=== PATIENT | male | born 1960 | race Caucasian/White ===

== ENCOUNTER → 2018-06-07 | Outpatient (CLI) | payer OTHER ==
[~2018-06-07] MED LIST: LISI5 PO; METO50 PO; NAPR220 PO
== END | disposition home or self-care (01) ==
LOC: LAB SHORT 11:15 → LAB EV 11:15
DX: S29.9XXA Unspecified injury of thorax, initial encounter (principal)
CPT/HCPCS: 87070; 87075; 87077; 87186; 87205

== ENCOUNTER 2020-06-13 06:35 | Emergency (ER) | payer OTHER ==
[~2020-06-13] VITALS: Ht 175.3 cm; Wt 85.3 kg
[2020-06-13] MEDS ORDERED: LOSARTAN POTAS100 M1 PO (07:02)
[2020-06-13] MEDS ORDERED: ELIQUIS5 M3 PO (07:03)
[2020-06-13] MEDS ORDERED: METO50ER PO (07:03)
[2020-06-13] MEDS ORDERED: OMEP20ER PO (07:04)
[2020-06-13 08:21] LABS: BASOPHILS ABSOLUTE AUTO 0.04 K/mm3 (0.00-0.23); BASOPHILS PERCENT AUTO 1 % (0-2); EOSINOPHILS PERCENT AUTO 3 % (0-6); Hematocrit 52.2 % (37.0-53.0); Hemoglobin 17.6 g/dL (13.5-17.5); IMMATURE GRAN ABSOLUTE AUTO 0.05 K/mm3 (0.00-0.10); IMMATURE GRAN PERCENT AUTO 1 % (0-1); LYMPHOCYTES ABSOLUTE AUTO 1.19 K/mm3 (0.84-5.20); LYMPHOCYTES PERCENT AUTO 19 % (21-46); MONOCYTES ABSOLUTE AUTO 0.65 K/mm3 (0.16-1.47); MONOCYTES PERCENT AUTO 10 % (4-13); Mean Corpuscular HGB Conc 33.7 g/dL (31.5-36.5); Mean Corpuscular Volume 92 fL (80-100); Mean Platelet Volume 10.5 fL (9.1-12.4); NEUTROPHILS ABSOLUTE AUTO 4.28 K/mm3 (1.96-9.15); NEUTROPHILS PERCENT AUTO 67 % (41-73); Platelet Count 190 K/mm3 (150-400); RDW Coefficient Variation 12.9 % (11.7-14.2); RDW Standard Deviation 43.8 fL (35.1-46.3); Red Blood Cell Count 5.68 M/mm3 (4.30-5.90); White Blood Cell Count 6.41 K/mm3 (4.00-11.30)
[2020-06-13 08:45] LABS: Alanine Aminotransfer (ALT/SGP 196 U/L (12-78); Albumin, Blood 3.8 g/dL (3.4-5.0); Albumin/Globulin Ratio 0.9 (0.8-1.8); Alk Phos 85 U/L (50-136); Anion Gap 7 mmol/L (6-16); Aspartate Aminotrans (AST/SGOT 150 U/L (12-37); Bilirubin, Total 0.7 mg/dL (0.1-1.0); Blood Urea Nitrogen 29 mg/dL (8-24); Bun/Creatinine Ratio 21.5 (12.0-20.0); CO2, Blood 25 mmol/L (21-32); Calcium, Blood 9.1 mg/dL (8.5-10.1); Chloride, Blood 108 mmol/L (98-108); Creatinine, Blood 1.35 mg/dL (0.60-1.20); Globulin, Blood 4.4 g/dL (2.2-4.0); Glomerular Filtration Rate 57 (60-); Glucose, Blood 111 mg/dL (70-99); Potassium, Blood 4.2 mmol/L (3.5-5.5); Sodium, Blood 140 mmol/L (136-145); Total Protein, Blood 8.2 g/dL (6.4-8.2); Troponin I <0.015 ng/mL (0.000-0.040)
[2020-06-13] MEDS ORDERED: Norco 10-325 T1 EACH PO (08:57)
[2020-06-13] MEDS ORDERED: HYDR1TAB94 PO (09:58)
== END 2020-06-13 09:15 | disposition home or self-care (01) ==
LOC: ER 06:35
PROVIDERS: Emergency Medicine
DX: R07.89 Other chest pain (principal); I48.20 Chronic atrial fibrillation, unspecified; F17.210 Nicotine dependence, cigarettes, uncomplicated; Z79.899 Other long term (current) drug therapy
CPT/HCPCS: 36415; 71046; 80053; 83880; 84443; 84484; 85025; 93005; 93010; 96372; 99284-25; J1885

== ENCOUNTER 2021-05-07 06:13 | Day surgery (SDC) | payer OTHER ==
[~2021-05-07] VITALS: Ht 175.3 cm; Wt 85.0 kg
[~2021-05-07 06:13] MED LIST changes: +ELIQUIS5 M3 PO; +HYDR1TAB94 PO; +LOSARTAN POTAS100 M1 PO; +METO50ER PO; +Norco 10-325 T1 EACH PO; +OMEP20ER PO
--- NOTE | 2021-05-07 08:55 | NUR ---
PT TO RECOVERY ROOM POST PROCEDURE. PT AWAKE AND CONVERSING APPROPRIATELY; DENIES PAIN POST PROCEDURE. MONITOR A FIB 80-90'S, B/P 102/81, AFEBRILE, SPO2 96% RA. R RADIAL SITE NO SWELLING/HEMATOMA, TR BAND IN PLACE 9 ML AIR; RUE POSITIVE PLEUTH POST TR BAND PLACEMENT.
[2021-05-07] MEDS ORDERED: Amlodipine Bes2.5 MG PO (09:32)
[2021-05-07] MEDS ORDERED: TORSE20 PO (09:32)
--- NOTE | 2021-05-07 10:55 | NUR ---
ATTEMPTED TO REMOVE AIR FROM TR BAND, POSITIVE BLEEDING, AIR REINSTILLED; R WRIST REMAINS WITHOUT SWELLING/HEMATOMA.
--- NOTE | 2021-05-07 11:10 | NUR ---
PT AMB TO BATHROOM, GAIT STEADY, SITE UNCHANGED AFTER ACTIVITY, VSS.
--- NOTE | 2021-05-07 12:35 | NUR ---
PT AMB IN ROOM WITHOUT ISSUE, SITE UNCHANGED WITH ACTIVITY.
--- NOTE | 2021-05-07 12:40 | NUR ---
PT DRESSED SELF WITHOUT ISSUE, SITE UNCHANGED. TR BAND REMOVED CLOTH DOT AND WRIST IMMOBILIER PLACED; IV REMOVED-CANNULA INTACT. PT PLACED IN SLING TO LIMIT USE OF R WRIST.
--- NOTE | 2021-05-07 12:47 | NUR ---
PT RECEIVED DISCHARGE INSTRUCTIONS, MED LIST AND AFTER CARE INSTRUCTIONS, VERBALIZED GOOD UNDERSTANDING. PT LEFT FACILITY VIA W/C, CONDITION STABLE.
== END 2021-05-07 12:47 | disposition home or self-care (01) ==
LOC: MHTC 06:13
PROC: B2111ZZ Fluoroscopy of Multiple Coronary Arteries using Low Osmolar Contrast (ICD-10-PCS; principal; 2021-05-07)
PROC: 4A023N7 Measurement of Cardiac Sampling and Pressure, Left Heart, Percutaneous Approach (ICD-10-PCS; principal; 2021-05-07)
DX: I25.10 Atherosclerotic heart disease of native coronary artery without angina pectoris (principal); Z88.8 Allergy status to other drugs, medicaments and biological substances
CPT/HCPCS: 76937; 85347; 93458; 93571; 93572; 99152; 99153; C1769; C1887; C1894; J0153; J1644; J2250; J3010; J7030; J7040; J7050; Q9967